=== PATIENT | male | born 1970 | race African-American/Black ===

== ENCOUNTER 2016-05-28 12:46 | Inpatient (IN) | payer OTHER ==
[2016-05-28 13:56] VITALS: BMI 20.3
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
[2016-05-28] MEDS ORDERED: MAGNESIUM CITRATE 300 ML BOTTLE PO PRN (15:50)
[2016-05-28] MEDS ORDERED: hydrOXYzine PAMOATE 25 MG CAPSULE (FP) PO PRN (15:50)
[2016-05-28] MEDS ORDERED: ACETAMINOPHEN 325 MG TABLET (FP) PO PRN (15:50)
[2016-05-28] MEDS ORDERED: IBUPROFEN 400 MG TABLET (FP) PO PRN (15:50)
[2016-05-28] MEDS ORDERED: P-EPHED 60MG/TRIPROLIDI 2.5MG TABLET PO PRN (15:50)
[2016-05-28] MEDS ORDERED: MAGNESIUM HYDROX 2400MG/30ML ORAL SUSPENSION 30 ML CUP PO PRN (15:50)
[2016-05-28] MEDS ORDERED: MENTHOL/PHENOL 1 EACH UD MM PRN (15:50)
[2016-05-28] MEDS ORDERED: guaiFENesin/D-METHORPHAN HB 10 ML UNIT-DOSE CUPS PO PRN (15:50)
[2016-05-28] MEDS ORDERED: NICOTINE POLACRILEX 4 MG GUM BUC PRN (15:50)
[2016-05-28] MEDS ORDERED: MAG HYDROX/AL HYDROX/SIMETH 30 ML UNIT-DOSE CUP PO PRN (15:50)
[2016-05-28] MEDS ORDERED: chlordiazePOXIDE HCL 25 MG CAPSULE PO PRN (15:50)
[2016-05-28] MEDS ORDERED: LOPERAMIDE HCL 2 MG CAPSULE PO PRN (15:50)
[2016-05-28] MEDS ORDERED: METHADONE HCL 10 MG TABLET (FOR DETOX USE ONLY) PO ONE ×2 (18:30→23:00)
[2016-05-28] MEDS: chlordiazePOXIDE HCL 25 MG CAPSULE PO SCH ×2 (19:36→22:38)
[2016-05-28] MEDS: NICOTINE 21 MG/24 HOURS TOPICAL PATCH TD SCH (19:39)
[2016-05-28] MEDS ORDERED: diphenhydrAMINE HCL 50 MG CAPSULE PO PRN (22:00)
[2016-05-28] MEDS: BACITRACIN 0.9 GM PACKET TP SCH (22:37)
[2016-05-28] MEDS: THIAMINE HCL 100 MG TABLET (FP) PO SCH (22:37)
[2016-05-28 23:07] LABS: URINE APPEARANCE CLEAR; URINE BILIRUBIN NEGATIVE (NEGATIVE); URINE BLOOD NEGATIVE (NEGATIVE); URINE COLOR YELLOW; URINE GLUCOSE (UA) NEGATIVE (NEGATIVE); URINE KETONE NEGATIVE (NEGATIVE); URINE LEUK ESTERASE NEGATIVE (NEGATIVE); URINE NITRITE NEGATIVE (NEGATIVE); URINE PROTEIN NEGATIVE (NEGATIVE); URINE UROBILINOGEN NEGATIVE E.U./dl (0.2-1.0)
[2016-05-29] MEDS: chlordiazePOXIDE HCL 25 MG CAPSULE PO SCH ×4 (05:55→22:14)
[2016-05-29] MEDS ORDERED: METHADONE HCL 10 MG TABLET (FOR DETOX USE ONLY) PO SCH (10:00)
[2016-05-29] MEDS: BACITRACIN 0.9 GM PACKET TP SCH ×2 (10:41→22:14)
[2016-05-29] MEDS: NICOTINE 21 MG/24 HOURS TOPICAL PATCH TD SCH (10:41)
[2016-05-29 10:42] LABS: MEAN CELL VOLUME 87.5 fl (80-96); MEAN PLT VOLUME 9.6 fl (7.5-11.1); PLATELET COUNT 217 K/MM3 (134-434); RDW 13.9 % (11.9-15.9); WHITE BLOOD COUNT 9.6 K/mm3 (4.0-10.0)
[2016-05-29] MEDS: PRENATAL VITAMINS W/ FOLIC ACID TABLET (FP) PO SCH (10:42)
[2016-05-29 10:43] LABS: ALBUMIN 3.8 g/dl (3.4-5.0); ALK PHOS 103 U/L (45-117); ANION GAP 8 (8-16); BILIRUBIN,TOTAL 0.4 mg/dL (0.2-1.0); CALCIUM 9.1 mg/dL (8.5-10.1); CO2 29 mmol/L (21-32); CREATININE 0.7 mg/dL (0.7-1.3); GLUCOSE,RANDOM 109 mg/dL (74-106); SGOT/AST 11 U/L (15-37); SGPT/ALT 13 U/L (12-78); TOT PROT 6.7 g/dl (6.4-8.2)
[2016-05-29 10:56] LABS: SICKLE CELL SCREEN NEGATIVE (NEGATIVE)
--- NOTE | 2016-05-29 12:10 | PN ---
[facility] CIWA - CIWA Score Nausea/Vomitin Muscle Tremors: 3 Anxiety: 3 Agitation: 2 Paroxysmal Sweats: 1-Minimal Palms Moist Orientation: 0-Oriented Tacttile Disturbances: 1-Very Mild Itch/Numbness Auditory Disturbances: 1-Very Mild Visual Disturbances: 1-Very Mild Sensitivity Headache: 2-Mild CIWA-Ar Total Score: 17 [facility] COWS - Scale Resting Pulse: 1= [place] 81-100 Sweatin= Chills/Flushing Restless Observation: 3= Extraneous Movement Pupil Size: 1= Pupils >than Normal Bone or Joint Aches: 2= Severe Diffuse Aches Runny Nose/ Eye Tearin= Runny Nose/Eyes GI Upset > 30mins: 2= Nausea/Diarrhea Tremor Observation of Outstretched Hands: 2= Slight Tremor Visible Yawning Observation: 1= 1-2x During Session Anxiety or Irritability: 2=Irritable/Anxious Goose Flesh Skin: 0=Smooth Skin COWS Score: 17 [facility] Progress Note (SOAP) Subjective: ALERT,IRRITABLE,ANXIOUS,INTERRUPTED SLEEP,PAIN IN THE BODY,TREMOR Objective: 05/29/16 12:08 Vital Signs Temperature 98.1 F 05/29/16 10:00 Pulse Rate 79 05/29/16 10:00 Respiratory Rate 20 05/29/16 10:00 Blood Pressure 105/74 05/29/16 10:00 O2 Sat by Pulse Oximetry (%) EKG SINUS BRADYCRDIA,55/MIN,INVERTED T IN V3 NO CHEST PAIN,NO SOB,NO DIZZINESS Laboratory Last Values WBC 9.6 K/mm3 (4.0-10.0) 05/29/16 06:00 RBC 4.67 M/mm3 (4.00-5.60) 05/29/16 06:00 Hgb 13.1 GM/dL (11.7-16.9) 05/29/16 06:00 Hct 40.9 % (35.4-49) 05/29/16 06:00 MCV 87.5 fl (80-96) 05/29/16 06:00 MCHC 32.0 g/dl (32.0-35.9) 05/29/16 06:00 RDW 13.9 % (11.9-15.9) 05/29/16 06:00 Plt Count 217 K/MM3 (134-434) 05/29/16 06:00 MPV 9.6 fl (7.5-11.1) 05/29/16 06:00 Sickle Cell Screen Negative (NEGATIVE) 05/29/16 06:00 Sodium 138 mmol/L (136-145) 05/29/16 06:00 Potassium 4.2 mmol/L (3.5-5.1) 05/29/16 06:00 Chloride 101 mmol/L (98-107) 05/29/16 06:00 Carbon Dioxide 29 mmol/L (21-32) 05/29/16 06:00 Anion Gap 8 (8-16) 05/29/16 06:00 BUN 11 mg/dL (7-18) 05/29/16 06:00 Creatinine 0.7 mg/dL (0.7-1.3) 05/29/16 06:00 Creat Clearance w eGFR > 60 (>60) 05/29/16 06:00 Random Glucose 109 mg/dL (74-106) H 05/29/16 06:00 Calcium 9.1 mg/dL (8.5-10.1) 05/29/16 06:00 Total Bilirubin 0.4 mg/dL (0.2-1.0) 05/29/16 06:00 AST 11 U/L (15-37) L 05/29/16 06:00 ALT 13 U/L (12-78) 05/29/16 06:00 Alkaline Phosphatase 103 U/L (45-117) 05/29/16 06:00 Total Protein 6.7 g/dl (6.4-8.2) 05/29/16 06:00 Albumin 3.8 g/dl (3.4-5.0) 05/29/16 06:00 Urine Color Yellow 05/28/16 22:05 Urine Appearance Clear 05/28/16 22:05 Urine pH 5.0 (5.0-8.0) 05/28/16 22:05 Ur Specific [place] 1.023 (1.001-1.035) 05/28/16 22:05 Urine Protein Negative (NEGATIVE) 05/28/16 22:05 Urine Glucose (UA) Negative (NEGATIVE) 05/28/16 22:05 Urine Ketones Negative (NEGATIVE) 05/28/16 22:05 Urine Blood Negative (NEGATIVE) 05/28/16 22:05 Urine Nitrite Negative (NEGATIVE) 05/28/16 22:05 Urine Bilirubin Negative (NEGATIVE) 05/28/16 22:05 Urine Urobilinogen Negative E.U./dl (0.2-1.0) 05/28/16 22:05 Ur Leukocyte Esterase Negative (NEGATIVE) 05/28/16 22:05 LABS PENDING Assessment: 05/29/16 12:09 WITHDRAWAL SYMPTOM Plan: CONTINUE DETOX
--- NOTE | 2016-05-29 13:33 | EKG ---
Test Reason : Blood Pressure : / mmHG Vent. Rate : 055 BPM Atrial Rate : 055 BPM P-R Int : 162 ms QRS Dur : 090 ms QT Int : 402 ms P-R-T Axes : 080 082 058 degrees QTc Int : 384 ms SINUS BRADYCARDIA POSSIBLE RIGHT VENTRICULAR HYPERTROPHY MINIMAL VOLTAGE CRITERIA FOR LVH, MAY BE NORMAL VARIANT ABNORMAL ECG NO PREVIOUS ECGS AVAILABLE Confirmed by SANTOS BEEBE MD ([id number]) on 05/29/2016 1:33:10 PM Referred By: Confirmed By:SANTOS BEEBE MD
[2016-05-29] MEDS: THIAMINE HCL 100 MG TABLET (FP) PO SCH (22:14)
[2016-05-30] MEDS: chlordiazePOXIDE HCL 25 MG CAPSULE PO SCH ×2 (05:17→11:12)
[2016-05-30] MEDS: NICOTINE 21 MG/24 HOURS TOPICAL PATCH TD SCH (10:00)
[2016-05-30] MEDS: PRENATAL VITAMINS W/ FOLIC ACID TABLET (FP) PO SCH (11:11)
[2016-05-30] MEDS: BACITRACIN 0.9 GM PACKET TP SCH ×2 (11:12→22:10)
[2016-05-30] MEDS: METHADONE HCL 5 MG TABLET (FOR DETOX USE ONLY) PO SCH (11:12)
--- NOTE | 2016-05-30 13:18 | PN ---
S CIWA - CIWA Score Nausea/Vomitin-No Nausea/No Vomiting Muscle Tremors: 4-Moderate,w/Arms Extend Anxiety: 4-Mod. Anxious/Guarded Agitation: 4-Moderately Restless Paroxysmal Sweats: 3 Orientation: 0-Oriented Tacttile Disturbances: 0-None Auditory Disturbances: 0-None Visual Disturbances: 0-None Headache: 0-None Present CIWA-Ar Total Score: 15 S COWS - Scale Resting Pulse: 0= [place] 80 or Below Sweatin=Flushed/Facial Moisture Restless Observation: 1= Difficult to Sit Still Pupil Size: 0= Normal to Room Light Bone or Joint Aches: 1= Mild Discomfort Runny Nose/ Eye Tearin= Nasal Congestion GI Upset > 30mins: 1= Stomach Cramp Tremor Observation of Outstretched Hands: 2= Slight Tremor Visible Yawning Observation: 2= >3x During Session Anxiety or Irritability: 2=Irritable/Anxious Goose Flesh Skin: 0=Smooth Skin COWS Score: 12 S Progress Note (SOAP) Subjective: body aches sweats shakes interrupted sleep Objective: 05/30/16 13:17 Vital Signs Temperature 98.4 F 05/30/16 10:11 Pulse Rate 75 05/30/16 10:11 Respiratory Rate 16 05/30/16 10:11 Blood Pressure 120/76 05/30/16 10:11 O2 Sat by Pulse Oximetry (%) Laboratory Tests 05/28/16 05/29/16 05/29/16 22:05 06:00 06:00 WBC 9.6 RBC 4.67 Hgb 13.1 Hct 40.9 MCV 87.5 MCHC 32.0 RDW 13.9 Plt Count 217 MPV 9.6 Sickle Cell Screen Negative Sodium 138 Potassium 4.2 Chloride 101 Carbon Dioxide 29 Anion Gap 8 BUN 11 Creatinine 0.7 Creat Clearance w eGFR > 60 Random Glucose 109 H Calcium 9.1 Total Bilirubin 0.4 AST 11 L ALT 13 Alkaline Phosphatase 103 Total Protein 6.7 Albumin 3.8 Urine Color Yellow Urine Appearance Clear Urine pH 5.0 Ur Specific [place] 1.023 Urine Protein Negative Urine Glucose (UA) Negative Urine Ketones Negative Urine Blood Negative Urine Nitrite Negative Urine Bilirubin Negative Urine Urobilinogen Negative Ur Leukocyte Esterase Negative RPR Titer 05/29/16 06:00 WBC RBC Hgb Hct MCV MCHC RDW Plt Count MPV Sickle Cell Screen Sodium Potassium Chloride Carbon Dioxide Anion Gap BUN Creatinine Creat Clearance w eGFR Random Glucose Calcium Total Bilirubin AST ALT Alkaline Phosphatase Total Protein Albumin Urine Color Urine Appearance Urine pH Ur Specific [place] Urine Protein Urine Glucose (UA) Urine Ketones Urine Blood Urine Nitrite Urine Bilirubin Urine Urobilinogen Ur Leukocyte Esterase RPR Titer Nonreactive awake/alert ambulating no acute distress Assessment: 05/30/16 13:18 withdrawal sx Plan: continue detox increase fluids
[2016-05-30] MEDS: chlordiazePOXIDE 5 MG CAPSULE PO SCH ×2 (17:19→22:10)
[2016-05-30] MEDS: THIAMINE HCL 100 MG TABLET (FP) PO SCH (22:10)
[2016-05-31] MEDS: chlordiazePOXIDE 5 MG CAPSULE PO SCH ×2 (05:35→10:26)
[2016-05-31] MEDS: PRENATAL VITAMINS W/ FOLIC ACID TABLET (FP) PO SCH (10:25)
[2016-05-31] MEDS: BACITRACIN 0.9 GM PACKET TP SCH ×2 (10:25→22:21)
[2016-05-31] MEDS: METHADONE HCL 5 MG TABLET (FOR DETOX USE ONLY) PO SCH (10:26)
[2016-05-31] MEDS: NICOTINE 21 MG/24 HOURS TOPICAL PATCH TD SCH (10:26)
--- NOTE | 2016-05-31 11:35 | PN ---
S Progress Note (SOAP) Subjective: ALERT,IRRITABLE,ANXIOUS,INTERRUPTED SLEEP Objective: 05/31/16 11:35 Vital Signs Temperature 98.2 F 05/31/16 10:30 Pulse Rate 67 05/31/16 10:30 Respiratory Rate 16 05/31/16 10:30 Blood Pressure 105/76 05/31/16 10:30 O2 Sat by Pulse Oximetry (%) Assessment: 05/31/16 11:35 WITHDRAWAL SYMPTOM Plan: CONTINUE DETOX,
[2016-05-31] MEDS: chlordiazePOXIDE HCL 10 MG CAPSULE PO SCH ×2 (17:22→22:21)
[2016-05-31] MEDS: THIAMINE HCL 100 MG TABLET (FP) PO SCH (22:21)
[2016-06-01] MEDS: chlordiazePOXIDE HCL 10 MG CAPSULE PO SCH ×2 (05:52→10:52)
[2016-06-01] MEDS ORDERED: METHADONE HCL 10 MG TABLET (FOR DETOX USE ONLY) PO SCH (10:00)
[2016-06-01] MEDS: PRENATAL VITAMINS W/ FOLIC ACID TABLET (FP) PO SCH (10:52)
[2016-06-01] MEDS: BACITRACIN 0.9 GM PACKET TP SCH ×2 (10:52→23:03)
--- NOTE | 2016-06-01 10:52 | PN ---
S Progress Note (SOAP) Subjective: ALERT,IRRITABLE,ANXIOUS,INTERRUPTED SLEEP Objective: 06/01/16 11:02 Vital Signs Temperature 97.9 F 06/01/16 09:40 Pulse Rate 71 06/01/16 09:40 Respiratory Rate 18 06/01/16 09:40 Blood Pressure 103/65 06/01/16 09:40 O2 Sat by Pulse Oximetry (%) Assessment: 06/01/16 11:02 WITHDRAWAL SYMPTOM Plan: CONTINUE DETOX,DISCHARGE IN AM
[2016-06-01] MEDS: NICOTINE 21 MG/24 HOURS TOPICAL PATCH TD SCH (10:55)
[2016-06-01] MEDS: THIAMINE HCL 100 MG TABLET (FP) PO SCH (23:03)
[2016-06-02] MEDS ORDERED: METHADONE HCL 5 MG TABLET (FOR DETOX USE ONLY) PO SCH (06:00)
[2016-06-02 06:59] VITALS: BP 113/70; PULSE 63; TEMP 97.7
--- NOTE | 2016-06-02 09:38 | DS ---
[facility] Detox Discharge Summary Admission Date: 05/28/16 Discharge Date: 06/02/16 - History Present History: Alcohol Dependence, Opioid Dependence Pertinent Past History: Stye left eye - Physical Exam Results Vital Signs: Vital Signs Temperature 97.7 F 06/02/16 06:00 Pulse Rate 63 06/02/16 06:00 Respiratory Rate 18 06/02/16 06:00 Blood Pressure 113/70 06/02/16 06:00 O2 Sat by Pulse Oximetry (%) Pertinent Admission Physical Exam Findings: Withdrawal sx. Laboratory Tests 05/28/16 05/29/16 05/29/16 22:05 06:00 06:00 WBC 9.6 RBC 4.67 Hgb 13.1 Hct 40.9 MCV 87.5 MCHC 32.0 RDW 13.9 Plt Count 217 MPV 9.6 Sickle Cell Screen Negative Sodium 138 Potassium 4.2 Chloride 101 Carbon Dioxide 29 Anion Gap 8 BUN 11 Creatinine 0.7 Creat Clearance w eGFR > 60 Random Glucose 109 H Calcium 9.1 Total Bilirubin 0.4 AST 11 L ALT 13 Alkaline Phosphatase 103 Total Protein 6.7 Albumin 3.8 Urine Color Yellow Urine Appearance Clear Urine pH 5.0 Ur Specific [place] 1.023 Urine Protein Negative Urine Glucose (UA) Negative Urine Ketones Negative Urine Blood Negative Urine Nitrite Negative Urine Bilirubin Negative Urine Urobilinogen Negative Ur Leukocyte Esterase Negative RPR Titer 05/29/16 06:00 WBC RBC Hgb Hct MCV MCHC RDW Plt Count MPV Sickle Cell Screen Sodium Potassium Chloride Carbon Dioxide Anion Gap BUN Creatinine Creat Clearance w eGFR Random Glucose Calcium Total Bilirubin AST ALT Alkaline Phosphatase Total Protein Albumin Urine Color Urine Appearance Urine pH Ur Specific [place] Urine Protein Urine Glucose (UA) Urine Ketones Urine Blood Urine Nitrite Urine Bilirubin Urine Urobilinogen Ur Leukocyte Esterase RPR Titer Nonreactive labs noted - Treatment Hospital Course: Detox Protocol Followed, Detoxed Safely, Responded well, Discharged Condition Good, Rehab Referral Accepted - Medication Discharge Medications: Ambulatory Orders NK [No Known Home Medication] 05/28/16 - Diagnosis (1) Alcohol dependence with uncomplicated withdrawal Current Visit: Yes Status: Acute (2) Opioid dependence with withdrawal Current Visit: Yes Status: Acute (3) Hordeolum of left eye Current Visit: Yes Status: Acute - AMA Did Patient Leave Against Medical Advice: No
== END 2016-06-02 09:10 | disposition home or self-care (01) | DRG 773 ==
LOC: YASAS 12:46 → Y6N 18:17
PROVIDERS: ADMIT Internal Medicine; ATTEND Internal Medicine
PROC: HZ2ZZZZ Detoxification Services for Substance Abuse Treatment (ICD-10-PCS; principal; 2016-06-02)
DX: F11.23 Opioid dependence with withdrawal (principal); F10.231 Alcohol dependence with withdrawal delirium; H00.014 Hordeolum externum left upper eyelid
CPT/HCPCS: 36415; 71020-TC; 80053; 81003; 85027; 85660; 86593; 93005; 93010